=== PATIENT | male | born 1995 | race Asian ===

== ENCOUNTER 2017-11-19 19:07 | Emergency (ER) | payer OTHER ==
[~2017-11-19] VITALS: Ht 180.3 cm; Wt 75.7 kg
--- NOTE | 2017-11-19 19:20 | NUR ---
PATIENT AMBULATED TO ER CHAIR A.
[2017-11-19 19:22] VITALS: BP 105/60
--- NOTE | 2017-11-19 19:22 | NUR ---
PATIENT IS A 22 Y/O MALE WHO PRESENTS TO THE ED C/O TESTICULAR PAIN. PT STATES THAT IT HAPPENED SUDDENLY YESTERDAY WITH NO TRAUMA OR INJURY. PT REPORTS 9/10 ACHING TESTICULAR PAIN THAT DOES NOT RADIATE. PT DENIES CP, SOB, N/V/D. PT AAOX4, RR EVEN/UNLABORED. PT REPOSITIONED FOR COMFORT, PT SITTING IN CHAIR. ER MD DR. GUERRERO NOTIFIED. WILL CONTINUE TO MONITOR.
[2017-11-19] MEDS ORDERED: KETOROLAC 30 MG/ML VIAL IM ONE (19:30)
--- NOTE | 2017-11-19 19:55 | NUR ---
PATIENT MOVED TO ER BED 1.
[2017-11-19 21:02] VITALS: BP 115/72
--- NOTE | 2017-11-19 21:02 | NUR ---
Patient discharged with v/s stable. Written and verbal after care instructions given and explained. Patient alert, oriented and verbalized understanding of instructions. Ambulatory with steady gait. All questions addressed prior to discharge. ID band removed. Patient advised to follow up with PMD. Rx of NAPROSYN 500MG given. Patient educated on indication of medication including possible reaction and side effects. Opportunity to ask questions provided and answered.
[2017-11-21 06:15] LABS: CHLAMYDIA TRACHOMATIS AMP DNA Negative (Negative)
== END 2017-11-19 21:02 | disposition home or self-care (01) ==
LOC: MED 19:07
DX: N50.811 Right testicular pain (principal); N50.812 Left testicular pain
CPT/HCPCS: 36415; 76870; 81002; 87491; 96372; 99285; J1885; 99284